=== PATIENT | female | born 1990 | race Caucasian/White ===

== ENCOUNTER 2022-11-12 09:06 | Emergency (ER) | payer BC, SELFPAY ==
[2022-11-12 09:40] VITALS: BP 129/71; PULSE 99; RESP 20; TEMP 37.1; O2SAT 97
--- NOTE | 2022-11-12 10:10 | ED.URI ---
HPI - URI/Sore Throat General Chief Complaint: Upper Respiratory Infection Stated Complaint: sore throat Source: patient and RN notes reviewed History of Present Illness HPI Narrative: 31-year-old female presents to urgent care with complaints of sore throat that started last night. Patient reports a slight headache yesterday. Denies any fevers, chills, ear pain, congestion, chest pain, shortness of breath, vomiting, or diarrhea. Patient has been taking cough drops at home. Some parts of this dictation were generated by voice recognition software and may contain typographical and/or grammatical inaccuracies. Related Data Home Medications Medication Instructions Recorded Confirmed Lamictal XR Starter (Blue) 11/12/22 11/12/22 escitalopram oxalate 10 mg tablet 10 mg PO DAILY 11/12/22 11/12/22 (Lexapro) lamotrigine 300 mg tablet,extended 300 mg PO DAILY 11/12/22 11/12/22 release 24 hr (Lamictal XR) quetiapine 400 mg tablet,extended 800 mg PO HS 11/12/22 11/12/22 release 24 hr (Seroquel XR) Allergies Allergy/AdvReac Type Severity Reaction Status Date / Time No Known Allergies Allergy Verified 11/12/22 09:41 Review of Systems Review of Systems: CONSTITUTIONAL: Denies fever, chills, or sweats. EYES: Denies visual changes, redness, or discharge. ENT: Reports sore throat CARDIOVASCULAR: Denies chest pain, palpitations, or edema. RESPIRATORY: Denies cough or dyspnea. GASTROINTESTINAL: Denies abdominal pain, nausea, vomiting, or diarrhea. GENITOURINARY: Denies dysuria or hematuria. SKIN: Denies rash or itching. MUSCULOSKELETAL: Denies back pain, joint pain, or myalgia. NEUROLOGIC: Denies headache, numbness, or weakness. PMFSH Comments At the time of my signature, I reviewed and agree with the nursing past medical, surgical, social, and family history. There is no relevant family history pertinent to the patient complaint. Exam Narrative: GENERAL: This is a well-nourished, well-developed patient, in no apparent distress. HEAD: normocephalic, atraumatic. EYES: PERRL. Sclera clear/white. Vision is grossly intact. EARS: External ears normal, auditory canals clear and without drainage, TMs normal without perforation. Hearing grossly intact. NOSE: External nose normal with no obvious nasal discharge, nares without redness, no rhinorrhea. THROAT: Mucous membranes moist, posterior pharynx clear. NECK: Mild lymphadenopathy. CARDIOVASCULAR: Regular rate and rhythm without murmurs, gallops, or rubs. RESPIRATORY: Clear to auscultation. Breath sounds equal bilaterally. No wheezes, rales, or rhonchi. GASTROINTESTINAL: Abdomen soft, non-tender, nondistended. Bowel sounds are active. No hepato-splenomegaly, or palpable masses. No guarding. SKIN: warm, intact with no suspicious lesions or rash, good texture and turgor. NEURO: awake, alert, and oriented to person, place and time. There were no obvious focal neurologic abnormalities. Course Course Level of Care: Express Care Visit Vital Signs Vital signs: Vital Signs Temperature 98.8 F 11/12/22 09:40 Pulse Rate 99 11/12/22 09:40 Respiratory Rate 20 11/12/22 09:40 Blood Pressure 129/71 11/12/22 09:40 Pulse Oximetry 97 11/12/22 09:40 Oxygen Delivery Room Air 11/12/22 09:40 Temperature 98.8 F 11/12/22 09:40 Pulse Rate 99 11/12/22 09:40 Respiratory Rate 20 11/12/22 09:40 Blood Pressure 129/71 11/12/22 09:40 Pulse Oximetry 97 11/12/22 09:40 Oxygen Delivery Room Air 11/12/22 09:40 Reviewed MDM - URI/Sore Throat MDM Narrative Medical decision making narrative: Rapid strep is negative in the office; however we will send to the lab for confirmation; there is a small percentage chance that it can come back positive; if it is, we will call you in 2-3days; and your prescription will be call in to your pharmacy. However, there is NO indication for antibiotic at this time. -Oral rinses such as: Salt water gargles and/or may use topical
== END 2022-11-12 10:33 | disposition home or self-care (01) ==
PROVIDERS: Emergency Provider Nurse Practitioner Family; PCP Family Medicine
DX: J02.9 Acute pharyngitis, unspecified (principal)
CPT/HCPCS: 87081; 87880; 99213; G0463